=== PATIENT | female | born 1970 | race Caucasian/White ===

== ENCOUNTER 2019-08-03 09:06 | Outpatient (CLI) | payer OTHER, SELFPAY ==
--- NOTE | ~2019-08-03 | XR_ITS ---
XR lumbar spine min 4V DATE: 08/03/2019 09:27 INDICATION: Low back pain, right hip joint pain TECHNIQUE: AP, lateral, bilateral oblique views, coned lateral lumbosacral view COMPARISON: None FINDINGS: There is normal alignment of the lumbar spine. No fracture, bone destruction, spondylolysis or spondylolisthesis. The lumbar and included lower thoracic pedicles are intact. Lumbar and upper s acral interspaces are well preserved. The sacroiliac joints are normal. IMPRESSION: Normal examination Reviewed, dictated and finalized at location A. IMPRESSION: Normal examination
== END 2019-08-03 09:07 | disposition home or self-care (01) ==
PROVIDERS: PCP Family Medicine; Visit Provider Nurse Practitioner
DX: M54.5 Low back pain (principal)
CPT/HCPCS: 72110

== ENCOUNTER → 2019-11-07 16:04 | Outpatient (CLI) | payer OTHER, SELFPAY ==
--- NOTE | ~2019-11-07 | XR_ITS ---
EXAMINATION: XR hand RT min 3V, XR wrist RT min 3V DATE: 11/07/2019 16:38 INDICATION: Right hand and wrist pain TECHNIQUE: 1. Posteroanterior, ulnar deviation, oblique, and lateral views of the right wrist were obtained. 2. Dorsal palmar, oblique and lateral views of the right hand were obtained. COMPARISON: None. FINDINGS: Minimally displaced intra-articular fracture at the distal right radius with mild comminution and buc aidan along the radial and dorsal sided cortices. There is a 1.5 mm lucent fracture gap without appre ciable step off extending along the articular surface at the radial side of the lunate fossa. No othe r fractures identified. Joint spaces in the right hand are normal. IMPRESSION: 1. Minimally displaced intra-articular fracture of the radial aspect of the distal right radius. Reviewed, dictated and finalized at location A. IMPRESSION: 1. Minimally displaced intra-articular fracture of the radial aspect of the dis [place] right radius.
== END ==
PROVIDERS: PCP Nurse Practitioner; Visit Provider Nurse Practitioner
DX: M79.641 Pain in right hand (principal); M25.531 Pain in right wrist
CPT/HCPCS: 73110; 73130

== ENCOUNTER → 2020-02-01 17:19 | Outpatient (CLI) | payer OTHER, SELFPAY ==
--- NOTE | ~2020-02-01 | XR_ITS ---
EXAMINATION:XR cervical spine min 6V DATE: 02/01/2020 18:14 INDICATION: Neck pain and stiffness TECHNIQUE: AP, lateral, left and right oblique, lateral swimmers, open mouth odontoid and submental o dontoid views of the cervical spine are provided. COMPARISON: None FINDINGS: Alignment is normal. Odontoid is intact. Normal atlantoaxial interval. Vertebral body heights are no rmal. Disc spaces are normal. Minimal to mild uncovertebral osteoarthritis, greatest on the right at C3-C4 and C5-C6. Minimal to mild cervical facet osteoarthritis, greatest at C7-T1. Central canal and neural foramina appear patent throughout. Prevertebral soft tissues are normal. IMPRESSION: 1. Minimal to mild cervical facet and uncovertebral osteoarthritis with no central canal or neural fo raminal stenosis. Reviewed, dictated and finalized at [facility]. SURY MANAGER IMPRESSION: 1. Minimal to mild cervical facet and uncovertebral osteoarthritis with no cent ral canal or neural foraminal stenosis.
== END ==
PROVIDERS: PCP Nurse Practitioner; Visit Provider Chiropractor
DX: M54.2 Cervicalgia (principal)
CPT/HCPCS: 72052

== ENCOUNTER → 2020-06-04 17:55 | Outpatient (CLI) | payer OTHER, SELFPAY ==
--- NOTE | ~2020-06-04 | DEXA_ITS ---
Bone Density Report Name: Amna Suarez Age: 50 Sex: Female Ethnicity: White Date of : 1970 Indication: screening for osteoporosis; Referring Provider: SHLOMO SEPULVEDA Study: Bone densitometry was performed. Exam Date: June 04, 2020 Accession number: [id number] Bone Density: Region BMD T-score Z-score Classification AP Spine (L1-L4) 0.904 -1.3 -0.4 Osteopenia Femoral Neck (Left) 0.554 -2.7 -1.8 Osteoporosis Total Hip (Left) 0.706 -1.9 -1.4 Osteopenia Femoral Neck (Right) 0.615 -2.1 -1.2 Osteopenia Total Hip (Right) 0.770 -1.4 -0.9 Osteopenia Total Hip Mean 0.738 -1.7 -1.2 Osteopenia World Health Organization criteria for BMD impression classify patients as: Normal (T-score at or above -1.0), Osteopenia (T-score between -1.0 and -2.5), or Osteoporosis (T-score at or below -2.5). 10-year Fracture Risk: FRAX not reported because: Premenopausal woman Some T-score for Spine Total or Hip Total or Femoral Neck at or below -2.5 Clinical Information Provided by Patient: Patient maximum height was 64.5 Drinks caffeinated beverages Onset of menses at age 12 Premenopausal Number of children 2 Impression: The patient's bone mass is within expected range for age, gender and ethnicity. Discussion: BONE DENSITY IS WITHIN EXPECTED LIMITS FOR AGE, SEX AND RACE. Bone density is within expected limits for age, sex and race at all sites measured. The patient should follow a healthful lifestyle (good nutrition with adequate calcium and vitamin D, and appropriate weight-bearing exercise). Follow-Up: Consider a repeat BMD and Vertebral Fracture Assessment (VFA) exam in 2 years or sooner if medically necessary, to reassess this patient's status. Reported by: [facility] on 06/04/2020 6:50:00 PM. Reviewed, dictated and finalized at location AFaye COLBY
--- NOTE | ~2020-06-04 | MM_ITS ---
EXAMINATION: MM screening [facility] BI w dede HISTORY: Screening mammogram TECHNIQUE: Craniocaudal and mediolateral oblique 3-D tomosynthesis images were obtained and synthetic 2-D images were generated. Bilateral rotated lateral CC views. CAD analysis was submitted and interp reted. COMPARISON: 05/31/2018, 03/02/2016, 01/31/2014 bilateral digital screening mammogram examinations BREAST PARENCHYMAL COMPOSITION: The breasts are heterogeneously dense, which may obscure small masses . FINDINGS: Occasional benign punctate microcalcifications. There is no evidence of suspicious mass, ca lcification, or architectural distortion to suggest malignancy in either breast. There has been no urrutia spicious interval change. IMPRESSION: 1. No mammographic evidence of malignancy. 2. Recommend routine screening mammography in one year. BI-RADS Category 2: Benign finding(s). Reviewed, dictated and finalized at location B.
== END ==
PROVIDERS: PCP Nurse Practitioner; Visit Provider Obstetrics & Gynecology
DX: Z12.31 Encounter for screening mammogram for malignant neoplasm of breast (principal); R92.1 Mammographic calcification found on diagnostic imaging of breast; M81.0 Age-related osteoporosis without current pathological fracture; M85.852 Other specified disorders of bone density and structure, left thigh; M85.851 Other specified disorders of bone density and structure, right thigh; S62.109A Fracture of unspecified carpal bone, unspecified wrist, initial encounter for closed fracture
CPT/HCPCS: 77063; 77067; 77080

== ENCOUNTER → 2021-07-18 13:46 | Outpatient (CLI) | payer OTHER, SELFPAY ==
--- NOTE | ~2021-07-18 | MM_ITS ---
EXAMINATION: MM screening [facility] BI w dede HISTORY: Screening mammogram TECHNIQUE: Craniocaudal and mediolateral oblique 3-D tomosynthesis images were obtained and synthetic 2-D images were generated. Bilateral rotated lateral CC views. CAD analysis was submitted and interp reted. COMPARISON: 06/04/2020, 05/31/2018, 03/02/2016 bilateral screening mammogram examinations BREAST PARENCHYMAL COMPOSITION: The breasts are heterogeneously dense, which may obscure small masses . FINDINGS: There is no evidence of suspicious mass, calcification, or architectural distortion to sugg est malignancy in either breast. There has been no suspicious interval change. IMPRESSION: 1. No mammographic evidence of malignancy. 2. Recommend routine screening mammography in one year. BI-RADS Category 1: Negative Reviewed, dictated and finalized at location A.
== END ==
PROVIDERS: PCP Obstetrics & Gynecology; Visit Provider Obstetrics & Gynecology
DX: Z12.31 Encounter for screening mammogram for malignant neoplasm of breast (principal)
CPT/HCPCS: 77063; 77067

== ENCOUNTER → 2022-07-20 10:10 | Outpatient (CLI) | payer OTHER, SELFPAY ==
--- NOTE | ~2022-07-20 | MM_ITS ---
EXAMINATION: MM screening [facility] BI w dede HISTORY: Screening mammogram TECHNIQUE: Craniocaudal and mediolateral oblique 3-D tomosynthesis images were obtained and synthetic 2-D images were generated. CAD analysis was submitted and interpreted. COMPARISON: 07/18/2021, 06/04/2020, 05/31/2018 BREAST PARENCHYMAL COMPOSITION: The breasts are extremely dense, which lowers the sensitivity of mamm ography. FINDINGS: No suspicious mass, calcification, or architectural distortion are identified in either simone ast to suggest malignancy. There has been no suspicious interval change. IMPRESSION: 1. No mammographic evidence of malignancy. 2. Recommend routine screening mammography in one year. BI-RADS Category 1: Negative Reviewed, dictated and finalized at location A.
--- NOTE | ~2022-07-20 | DEXA_ITS ---
Bone Density Report Name: ÁNGEL CUEVAS Age: 52 Sex: Female Ethnicity: White Date of : 1970 Indication: osteopenia; monitoring treatment; Referring Provider: SHLOMO SEPULVEDA Study: Bone densitometry was performed. Exam Date: July 20, 2022 Accession number: [id number] Bone Density: Region BMD T-score Z-score Classification AP Spine (L1-L4) 0.915 -1.2 -0.2 Osteopenia Femoral Neck (Left) 0.581 -2.4 -1.4 Osteopenia Total Hip (Left) 0.727 -1.8 -1.1 Osteopenia Femoral Neck (Right) 0.609 -2.2 -1.1 Osteopenia Total Hip (Right) 0.760 -1.5 -0.8 Osteopenia Total Hip Mean 0.744 -1.7 -1.0 Osteopenia World Health Organization criteria for BMD impression classify patients as: Normal (T-score at or above -1.0), Osteopenia (T-score between -1.0 and -2.5), or Osteoporosis (T-score at or below -2.5). 10-year Fracture Risk: FRAX not reported because: Treated for osteoporosis Previous Exams: Region Exam Age BMD T-score BMD Change BMD Change Date g/cm2 vs Baseline vs Previous AP Spine(L1-L4) 07/20/2022 52 0.915 -1.2 0.011 0.011 06/04/2020 50 0.904 -1.3 Total Hip(Left) 07/20/2022 52 0.727 -1.8 0.021 0.021 06/04/2020 50 0.706 -1.9 Total Hip(Right) 07/20/2022 52 0.760 -1.5 -0.010 -0.010 06/04/2020 50 0.770 -1.4 *Denotes significance at 95% confidence level, LSC for AP Spine = 0.022 g/cm2, LSC for Total Hip = 0.027 g/cm2 Clinical Information Provided by Patient: Is being treated for osteoporosis Has used the following medications: Boniva (i.e. ibandronate), Vitamin D, Calcium, MTV Patient maximum height was 64.5 Drinks caffeinated beverages Onset of menses at age 12 Number of children 2 Impression: The patient has low bone mass, based on the Left Femoral Neck T-score. No significant bone loss was observed. Discussion: PATIENT UNDER TREATMENT WITH NO SIGNIFICANT BMD LOSS SINCE LAST EXAM. In an untreated patient, BMD typically declines with age. A lack of decline or gain is usually a sign that treatment is efficacious and fracture risk is reduced. It is important to ask patients whether they are taking their medications and to encourage continued and appropriate compliance with their osteoporosis therapies to reduce fracture risk. It is also important to review their risk factors and encourage appropriate calcium and vitamin D intakes, exercise, fall prevention and other lifestyle measures.
== END ==
PROVIDERS: PCP Family Medicine; Visit Provider Obstetrics & Gynecology
DX: Z12.31 Encounter for screening mammogram for malignant neoplasm of breast (principal); M85.88 Other specified disorders of bone density and structure, other site; M85.852 Other specified disorders of bone density and structure, left thigh; M85.851 Other specified disorders of bone density and structure, right thigh
CPT/HCPCS: 77063; 77067; 77080

== ENCOUNTER 2023-07-30 12:20 | Outpatient (CLI) | payer OTHER, SELFPAY ==
--- NOTE | ~2023-07-30 | MM_ITS ---
EXAMINATION: MM screening [facility] BI w dede HISTORY: Screening mammogram TECHNIQUE: Craniocaudal and mediolateral oblique 3-D tomosynthesis images were obtained and synthetic 2-D images were generated. Bilateral rotated lateral CC views. CAD analysis was submitted and interp reted. COMPARISON: 07/20/2022, 07/18/2021 bilateral screening mammogram examinations BREAST PARENCHYMAL COMPOSITION: The breasts are heterogeneously dense, which may obscure small masses . FINDINGS: There is no evidence of suspicious mass, calcification, or architectural distortion to sugg est malignancy in either breast. There has been no suspicious interval change. IMPRESSION: 1. No mammographic evidence of malignancy. 2. Recommend routine screening mammography in one year. BI-RADS Category 1: Negative Reviewed, dictated and finalized at location B.
== END 2023-07-30 12:21 ==
PROVIDERS: PCP Family Medicine; Visit Provider Obstetrics & Gynecology
DX: Z12.31 Encounter for screening mammogram for malignant neoplasm of breast (principal)
CPT/HCPCS: 77063; 77067

== ENCOUNTER 2024-06-16 12:26 | Outpatient (CLI) | payer OTHER, SELFPAY ==
--- NOTE | ~2024-06-16 | XR_ITS ---
AP view of the pelvis Clinical history: Pain Findings: No acute fracture or dislocation is seen. Osseous alignment is anatomic. Bilateral hip and SI joint spaces are preserved. IUD in place. There is a crescentic calcification along the right side of the L4 vertebral body, of uncertain etiology. Impression: IUD in place. Crescentic calcification along the left side of the L4 vertebral body, of uncertain etiology. Conside r cross-sectional imaging to further evaluate, if indicated. Reviewed, dictated and finalized at location M. Impression: IUD in place. Crescentic calcification along the left side of the L4 vertebral body, of uncer tain etiology. Consider cross-sectional imaging to further evaluate, if indicat ed.
--- NOTE | ~2024-06-16 | XR_ITS ---
Lumbosacral Spine: AP, oblique, and lateral views Clinical History: Pain Findings: The normal lordotic curve is maintained. The vertebral bodies and posterior elements are i ntact. The intervertebral disc spaces are preserved. There is mild facet arthropathy. The sacroiliac joints are normally outlined. IUD in place. There is a 2.6 x 0.8 cm crescentic calcification project ing just lateral to the right side of the L4 vertebral body. Impression: Mild facet arthropathy and lumbar spine. IUD. Prominent calcification along the right side of the L4 vertebral body, of uncertain etiology. Reviewed, dictated and finalized at location M. Impression: Mild facet arthropathy and lumbar spine. IUD. Prominent calcification along the right side of the L4 vertebral body, of uncer tain etiology.
== END 2024-06-16 12:27 | disposition home or self-care (01) ==
LOC: GOSHIMG 12:28
PROVIDERS: PCP Family Medicine; Visit Provider Chiropractor
DX: M54.50 Low back pain, unspecified (principal); Z97.5 Presence of (intrauterine) contraceptive device
CPT/HCPCS: 72110; 72170

== ENCOUNTER 2024-06-26 09:17 | Outpatient (CLI) | payer OTHER, SELFPAY ==
--- NOTE | ~2024-06-26 | CT_ITS ---
EXAMINATION: CT lumbar spine wo con DATE: 06/26/2024 09:31 INDICATION: Other congenital malformation of the spine. TECHNIQUE: Computed tomography (CT) of the lumbar spine was performed without intravenous contrast. A utomated exposure control and iterative reconstruction technique were employed. The dose-length produ ct was 247.62 mGy-cm. COMPARISON: None FINDINGS: 5 degrees lumbar levocurvature. There is straightening of the normal lumbar lordosis. Vertebral body heights are normal. Mild disc height loss at T12-L1. Lumbar disc heights are normal. Paravertebral so ft tissues are unremarkable. The right calcific density noted on the prior radiographs projecting lat eral to the L4 vertebral body corresponds to a small amount of high attenuation material layering dep endently in the distal body the stomach. Partially visualized IUD on the sagittal images. The followi ng disc levels are specifically discussed: T12-L1: The disc does not extend beyond the endplate margin. There is mild bilateral facet joint oste oarthritis. There is no neural foraminal stenosis. There is no central canal stenosis. L1-L2: Disc is mildly bulging. There is mild bilateral facet joint osteoarthritis. There is no neural foraminal stenosis. There is negligible central canal stenosis. L2-L3: Disc is mildly bulging. There is minimal bilateral facet joint osteoarthritis. There is no bon ral foraminal stenosis. There is negligible central canal stenosis. L3-L4: Disc is bulging. There is mild right and minimal left facet joint osteoarthritis. There is no neural foraminal stenosis. There is mild central canal stenosis. L4-L5: Disc is bulging, slightly more prominently on the left. There is mild right and minimal left f acet joint osteoarthritis. There is mild bilateral neural foraminal stenosis. There is mild central c anal stenosis including mild narrowing of the left lateral recess. L5-S1: Disc is mildly bulging. There is mild bilateral facet joint osteoarthritis. There is no neural foraminal stenosis. There is no central canal stenosis. IMPRESSION: 1. Very mild lumbar spondylosis. Reviewed, dictated and finalized at location A.
== END 2024-06-26 09:18 | disposition home or self-care (01) ==
LOC: GOSHIMG 09:18
PROVIDERS: PCP Chiropractor; Visit Provider Family Medicine
DX: R93.89 Abnormal findings on diagnostic imaging of other specified body structures (principal); M43.06 Spondylolysis, lumbar region
CPT/HCPCS: 72131

== ENCOUNTER 2024-07-05 19:24 | Emergency (ER) | payer OTHER, SELFPAY ==
--- NOTE | 2024-07-05 19:24 | ED.EYEPROB ---
HPI - Eye Problem General Chief complaint: Eye Problems Stated complaint: EYE REDNESS/DISCHARGE Time Seen by Provider: 07/05/24 19:24 Source: patient Mode of arrival: ambulatory Limitations: no limitations History of Present Illness HPI Narrative: Amna is a 54-year-old female patient presenting to the clinic today with complaints of bilateral eye redness and white discharge. She reports she woke up this morning with the symptoms. States that she does not really have any pain or itching at this time. No fevers. No URI symptoms. No known exposure to anyone with conjunctivitis Related Data Home Medications ?Medication ?Instructions ?Recorded ?Confirmed ?Last Taken ?Type flaxseed oil 1,000 mg capsule 1,000 mg PO DAILY 02/03/19 04/20/24 Unknown History (Five Points-3 Flaxseed Oil) levonorgestrel (Mirena) 1 device intrauterine ONCE 02/03/19 04/20/24 Unknown History multivitamin with calcium carb and tablet PO 02/03/19 04/20/24 Unknown History iron tablet Saccharomyces boulardii 250 mg 250 mg PO BID 09/27/23 04/20/24 Unknown History capsule (Daily Probiotic (S. boulardii)) ibandronate 150 mg tablet 150 mg PO MONTHLY 09/27/23 04/20/24 Unknown History magnesium 250 mg tablet 250 mg PO DAILY 09/27/23 04/20/24 Unknown History polyvinyl alcohol-povidone (PF) 1 drp EACH EYE QHS 09/27/23 04/20/24 Unknown History 1.4 %-0.6 % eye drops in a dropperette (Refresh Classic (PF)) doxycycline monohydrate 100 mg mg PO 04/20/24 04/20/24 Unknown History tablet Allergies Allergy/AdvReac Type Severity Reaction Status Date / Time No Known Allergies Allergy Verified 04/20/24 09:05 Review of Systems Review of Systems: Pertinent positives per HPI. Patient denies any fever, chills, rash, headache, visual changes, dizziness, cough, runny nose, sore throat, shortness of breath, chest pain, palpitations, nausea, vomiting, diarrhea, constipation, abdominal pain, or any urinary issues. [facility] Past Medical History Medical History (Updated 07/05/24 @ 19:41 by Jordi Dougherty APRN) History of gastric ulcer Dizziness Family History Family History Mother Family history of osteoporosis Hypertension Kidney disease Dementia Father Family history of colonic diverticulitis Hypertension Skin cancer Sibling Cancer of appendix Hypertension Grandparent Kidney disease Dementia Family history of arthritis Heart disease Other Acute myocardial infarction Family history of Alzheimer's disease Family history of congestive heart failure Social History Social History Smoking status: Never smoker Alcohol intake: current Alcohol use details: 2-4 per week - wine Substance use: never Do You Feel Safe in your Home?: Yes Lack of Transportation: No Lack of Food: Never True Current Housing: I Have Housing Concerned About Future Housing: No Difficulty Paying Gas/Electric Bills: No Difficulty Paying for Meds: No Currently Unemployed: No Education: Master's Degree or Higher Difficulty w/ Childcare or Family Care: No Living arrangements: with family Comments At the time of my signature, I reviewed and agree with the nursing past medical, surgical, social, and family history. There is no relevant family history pertinent to the patient complaint. Exam Narrative: General: Well-developed, well nourished, in no apparent distress Head: Normocephalic, atraumatic Eyes: Pupils equally round and reactive to light bilaterally, EOM intact, bilateral sclera and conjunctive injected, no discharge, mild lid swelling bilaterally Ears: TMs intact and clear, ear canals clear, no drainage, grossly hearing normal. Nose: Nares patent, no discharge, no inflammation, no sinus tenderness. Mouth: Oropharynx without lesions or masses, good dentition, MMM. Neck: Supple, trachea midline, no enlargement of anterior or posterior cervical nodes, no thyroid masses or goiter palpable. Cardio: Regular rate and rhythm, s1 and s2 normal, no murmur appreciated. Resp: Clear to auscultation bilaterally anteriorly and posteriorly, no rhonchi, rales, wheezing or rubs Course Course Emergency Course: Portions of this record may have been created with voice recognition software. Level of Care: Express Care Visit Vital Signs Vital signs: Vital signs reviewed MDM - Eye Problem MDM Narrative Medical decision making narrative: At the time of visit patient is resting comfortably on the exam table. Patient appears to be nontoxic. Plan: I suspect patient likely has allergic conjunctivitis. Prescription for azelastine eyedrops was sent to the pharmacy. Supportive measures were discussed with the patient and they voiced understanding discharge instructions and agrees to treatment plan. Return precautions reviewed Differential Diagnosis Differential diagnosis: Likely corneal abrasion, conjunctivitis, acute iritis, hyphema, periorbital cellulitis, subconjunctival hemorrhage, glaucoma, corneal ulcer, ruptured globe and other Discharge Plan Discharge Clinical Impression: Acute allergic conjunctivitis Patient Disposition: Home Condition: Stable Instructions: Antibiotic Form, Conjunctivitis (ED) Additional Instructions: Practice good hand washing techniques Avoid touching eyes Instill eyedrops as prescribed May use warm moist washcloth to help remove eye discharge If eyes are matted shut-do not pry eyes open-use a warm moist cloth to loosen matting and wipe matter away from eye May take Tylenol/Motrin as needed for pain or fever May take Benadryl as needed for itching Follow-up with your PCP in 3-5 days if symptoms persist or sooner if they worsen Go to the emergency room if you develop any fever that is not controlled by Tylenol or Motrin, loss of vision, eye pain, increase eye swelling,visual changes, headache, confusion, lethargy, weakness, chest pain, or shortness of breath. Patient Language: Azerbaijani Prescriptions: New azelastine 0.05 % drops 1 drp EACH EYE BID 7 Days Qty: 6 0RF No Action Mirena 20 mcg/24 hours (5 yrs) 52 mg intrauterine device 1 device I-UTERINE ONCE multivitamin-calcium carb-iron Tablet PO flaxseed oil [Five Points-3 Flaxseed Oil] 1,000 mg capsule 1,000 mg PO DAILY magnesium 250 mg tablet 250 mg PO DAILY Refresh Classic (PF) 1.4-0.6 % dropperette 1 drp EACH EYE QHS Saccharomyces boulardii [Daily Probiotic (S. boulardii)] 250 mg capsule 250 mg PO BID ibandronate 150 mg tablet 150 mg PO MONTHLY doxycycline monohydrate 100 mg tablet PO Follow-up/Referrals: Britni Machado DO [Primary Care Provider] - Time of Disposition: 19:41 Quality NIHSS Nursing Documentation ED NIHSS nursing documentation: reviewed/agree
[2024-07-05 19:33] VITALS: BP 127/59; PULSE 74; RESP 16; TEMP 36.4; O2SAT 100
== END 2024-07-05 19:43 | disposition home or self-care (01) ==
PROVIDERS: Emergency Provider Nurse Practitioner Family; PCP Family Medicine
DX: H10.13 Acute atopic conjunctivitis, bilateral (principal)
CPT/HCPCS: 99213; G0463

== ENCOUNTER 2024-12-08 09:10 | Outpatient (CLI) | payer OTHER, SELFPAY ==
--- NOTE | ~2024-12-08 | DEXA_ITS ---
Bone Density Report Name: ÁNGEL CUEVAS Age: 54 Sex: Female Ethnicity: White Date of : 1970 Indication: postmenopausal; screening for osteoporosis; Referring Provider: SHLOMO SEPULVEDA Study: Bone densitometry was performed. Exam Date: December 08, 2024 Accession number: [id number] Bone Density: Region BMD T-score Z-score Classification AP Spine(L1-L4) 0.877 -1.5 -0.4 Osteopenia Femoral Neck (Left) 0.574 -2.5 -1.3 Osteoporosis Total Hip (Left) 0.716 -1.9 -1.1 Osteopenia Femoral Neck (Right) 0.582 -2.4 -1.3 Osteopenia Total Hip (Right) 0.719 -1.8 -1.1 Osteopenia Total Hip Mean 0.717 -1.9 -1.1 Osteopenia World Health Organization criteria for BMD impression classify patients as: Normal (T-score at or above -1.0), Osteopenia (T-score between -1.0 and -2.5), or Osteoporosis (T-score at or below -2.5). 10-year Fracture Risk: FRAX not reported because: Some T-score for Spine Total or Hip Total or Femoral Neck at or below -2.5 Impression: The patient has osteoporosis, based on the Left Femoral Neck T-score. Discussion: INCREASED RISK OF FRACTURE. BONE DENSITY IS UNDESIRABLY LOW AT ONE OR MORE SKELETAL SITES, CONSISTENT WITH POSTMENOPAUSAL OSTEOPOROSIS. This patient's lowest T-score meets the World Health Organization's (WHO) criteria for osteoporosis at one or more sites (T-score -2.5 or below). In untreated patients, the risk of osteoporotic fracture increases approximately two-fold for each 1.0 SD decrease in T-score. Low bone density is not the only risk factor for fracture; also consider factors such as patient's age, frailty or poor health, risk of falling, risk of injury, previous osteoporotic fracture, family history of osteoporosis, cigarette smoking, low body weight, etc. Not everyone with low bone mineral density has osteoporosis; osteomalacia and other metabolic bone disorders should also be considered. Patients who have osteoporosis should be evaluated for specific diseases and conditions (secondary causes) that may cause or contribute to bone loss. The [place] Association [employer] Clinical Endocrinologists (AACE) and National Osteoporosis Foundation (NOF) recommend pharmacologic intervention for all postmenopausal women whose T-score is in this range. The patient should follow a healthful lifestyle (good nutrition with adequate calcium and vitamin D, and appropriate weight-bearing exercise). Follow-Up: Consider a repeat BMD and Vertebral Fracture Assessment (VFA) exam in 2 years or sooner if medically necessary, to reassess this patient's status. Reported by: COLETTE on 12/08/2024 9:55:00 AM. Reviewed, dictated and finalized at location A.
--- NOTE | ~2024-12-08 | MM_ITS ---
EXAMINATION: MM screening zehra BI w dede HISTORY: Screening TECHNIQUE: Craniocaudal and mediolateral oblique 3-D tomosynthesis images were obtained and synthetic 2-D images were generated. CAD analysis was submitted and interpreted. COMPARISON: Comparison to multiple prior studies sequentially, with oldest reviewed study dated , 05/31/2018 BREAST PARENCHYMAL COMPOSITION: There are scattered areas of fibroglandular density. FINDINGS: There is no evidence of suspicious mass, calcification, or architectural distortion to suggest malignancy in either breast. IMPRESSION: 1. No mammographic evidence of malignancy. 2. Recommend routine screening mammography in one year. BI-RADS Category 1: Negative Reviewed, dictated and finalized at location B.
--- OUTSIDE RECORDS SUMMARY | 2024-12-08 09:17 | XMS_ITS | Clinical Summary ---
Author Organization [facility] Address [address] [place] [address] Care Team Providers Care Religion Instructor Name Role Phone Sudarshan Hernandez MD Primary Care Provider [phone] Source Comments [facility],non-owned Affiliates and Associated Physician Practices is amultiple site organization consisting of ambulatory clinics and hospital sitesin [place], [place], [place] and [place]. This disclosure is being madepursuant to the Care Everywhere program and may not contain all information available regarding this patient. Last updated [employer] [facility] Allergies No known active allergies Medications * Be aware that medications may not be up to date on this document. Alwaysverify current medications with the patient. 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[employer] Gender Identity Not on file Sexual Orientation Not on file Plan of Treatment Health Maintenance Due Date Last Done Comments COLOGUARD (AGES 45-75) - COL ON CA SCREENING 1968 COLON MONITORING 1968 COLONOSCOPY - COLON CA SCREENING 1968 CT COLONOGRAPHY - COLON CA SCREENING 1970 Colorectal Cancer Screening 1968 FIT - COLON CA SCREENING 1968 FLEX SIG - COLON CA SCREENING 1968 LIPID TESTING 1970 MAMMOGRAM 1968 HIV SCREENING 1983 HEPATITIS C SCREENING 02/28/1986 DTAP/TDAP/TD VACCINES (1 - Tdap) 1987 HEPATITIS B VACCINE (1 of 3 - 19+ 3-dose series) 1987 PNEUMOCOCCAL VACCINE 50+ (1 of 1 - PCV) 2018 ZOSTER VACCINE (1 of 2) 2018 DEPRESSION SCREENING 03/15/2024 COVID-19 VACCINE (1 - 2023-2 5 season) 2024 INFLUENZA VACCINE (#1) 2024 HIB VACCINE Aged Out No longer eligi ble based on patient's age to complete this topic HPV VACCINE Aged Out No longer eligi ble based on patient's age to complete this topic MENINGOCOCCAL (Group B) VACC INE SHARED DECISION-MAKING Aged Out No longer eligibl e based on patient's age to complete this topic MENINGOCOCCAL GROUPS A/C/Y/W VACCINE Aged Out No longer eligible b ased on patient's age to complete this topic Insurance [employer] Care Teams Religion Instructor Relationship Specialty Start Date End Date Sudarshan Hernandez MD [address] [id number] PCP - General 01/06/18
--- OUTSIDE RECORDS SUMMARY | 2024-12-08 09:17 | XMS_ITS | Clinical Summary ---
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 Gender Identity Not on file Sexual Orientation Not on file Obstetrics History Last Filed Vital Signs Vital Sign Reading Time Taken Comments Blood Pressure - - Pulse - - Temperature - - Respiratory Rate - - Oxygen Saturation - - Inhaled Oxygen Concentration - - Weight 54.4 kg (120 lb) 04/18/2019 9:35 AM STORAGE CONSULTANT Height 162.6 cm (5' 4) 04/18/2019 9:35 AM STORAGE CONSULTANT Body Mass Index 20.6 04/18/2019 9:35 AM STORAGE CONSULTANT Plan of Treatment Health Maintenance Due Date Last Done Comments Breast Cancer Screening-Mammogram 1970 Cervical Cancer Screening 1970 Colon Cancer Screening-Colonoscopy 1970 Depression Screening 1970 Hepatitis C Screening 1970 Regular Well Visit/Exam 18-64 1986 Covid-19 Vaccine ( season) 2024 12/19/2022, 12/07/2021, 01/17/2021, Additional history exists Influenza Vaccine (#1) 2024 , 11/22/2021, 12/10/2019, Additional history exists DTaP/Tdap/Td Vaccine (2 - Td or Tdap) 05/10/2025 05/10/2015 Hepatitis B Screening Completed 11/14/2015 , 06/08/2015, 05/10/2015 Zoster Vaccine Completed 05/26/2020, 03/23/2020 Pneumococcal vaccine <65 Aged Out No longer eligible based on patient's age to complete this topic Insurance [id number] [place] [id number] Care Teams Circus Roustabout Relationship Specialty Start Date End Date Soniya Sauceda MD PCP - General Family Medicine 03/06/19
--- OUTSIDE RECORDS SUMMARY | 2024-12-08 09:17 | XMS_ITS | Encounter Summary ---
Author Organization [facility] Address [address] [place] [address] Care Team Providers Care Adolescent Medicine Specialist Name Role Phone Sudarshan Hernandez MD Primary Care Provider [phone] Encounter Details Date Type Department Care Team (Late st Contact Info) Description 01/06/2018 Lab Requisition [facility] [address] [place] [address] [place] [address] Social History Tobacco Use Types Packs/Day Years Used Date Smoking Tobacco: Never Assessed Comments Unknown Sex and Gender Information Value Date Recorded Sex Assigned at Not on file 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 Gender Identity Not on file Sexual Orientation Not on file documented as of this encounter Plan of Treatment Not on file documented as of this encounter Procedures Procedure Name Priority Date/Time Associated Diagnosis Comments DERMATOPATHOLOGY Routine 01/05/2018 12:0 0 AM CDT documented in this encounter Results * DERMATOPATHOLOGY (01/05/2018 12:00 AM CDT) Case Report Dermatopathology Report Case: [id number] Authorizing Provider: Major Saxena MD Collected: 01/05/2018 12:00 AM Pathologist: Louann Garvin MD Received: 01/06/2018 01:25 PM Specimen: Skin, right vertex 8 2:10 PM CDT DERMATOPATHOLOGY LABORATORY Final Diagnosis Specimen A. 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 2:10 PM CDT DERMATOPATHOLOGY LABORATORY Gross Description Specimen A: Received is one formalin filled container labeled with the patient's name and designated right vertex. The specimen consists of a punch biopsy measuring [id number], bsiected. Jar 0. 2:10 PM CDT DERMATOPATHOLOGY LABORATORY Microscopic Description Specimen A. SKIN, right vertex: A cystic structure lined by apocrine epithelium showing 'decapitation' secretion is present in the dermis. 2:10 PM CDT DERMATOPATHOLOGY LABORATORY Disclaimer An external and internal positive and negative controls are appropriate for the histochemical, immunohistochemical and immunofluorescence stain(s) in this case (if any), except where stated explicitly. The performance characteristics of the stain(s) cited in this report were developed and its performance characteristic determined by the Dermatopathology Laboratory at [facility]. These tests need not be, and therefore are not, approved by the [place] Food and Drug Administration. The tests are used for clinical purposes. Billing Codes Specimen Charges Stain Charges 53269 1 2:10 PM CDT DERMATOPATHOLOGY LABORATORY Embedded Images 2:10 PM CDT DERMATOPATHOLOGY LABORATORY Pathology/Cytolog y TISSUE SPECIMEN FROM SKIN / Unknown 01/05/2018 01/06/2018 1:25 PM CDT Major Saxena MD LAB - PATHOLOGY/CYTOLOGY ORD ERABLES Final Result DERMATOPATHOLOGY LABORATORY [facility] - Department of Dermatology [address] [place] [address], [facility] [phone] documented in this encounter Visit Diagnoses Not on filedocumented in this encounter Care Teams Adolescent Medicine Specialist Relationship Specialty Start Date End Date Sudarshan Hernandez MD [address] [address] PCP - General 01/06/18 documented as of this encounter
== END 2024-12-08 09:11 | disposition home or self-care (01) ==
PROVIDERS: PCP Nurse Practitioner Family; Visit Provider Obstetrics & Gynecology
DX: Z12.31 Encounter for screening mammogram for malignant neoplasm of breast (principal); Z13.820 Encounter for screening for osteoporosis; M81.0 Age-related osteoporosis without current pathological fracture; M85.89 Other specified disorders of bone density and structure, multiple sites
CPT/HCPCS: 77063; 77067; 77080